=== PATIENT | male | born 1940 | race Caucasian/White ===

== ENCOUNTER → 2021-11-18 10:46 | Outpatient (CLI) | payer MEDICARE, MEDICAID, SELFPAY ==
--- NOTE | 2021-11-18 10:57 | FL_ITS ---
FINAL REPORT CLINICAL HISTORY: difficulty swallowing FINDINGS: MODIFIED BARIUM SWALLOW History: Dysphagia. FINDINGS: Fluoroscopy was provided for the speech pathologist to evaluate the swallowing mechanism. The patient was given several different consistencies of barium while the swallow was visualized fluoroscopically. The report of the speech pathologist should be consulted prior to making dietary decisions. FLUOROSCOPY TIME:4 minutes 1 second. 26 Cine runs were obtained. IMPRESSION: Modified barium swallow under fluoroscopic guidance. Please see the report of the speech pathologist for more detail. Films reviewed , interpreted and dictated by Dr. Baptiste. Transcribed by Aldair Baldwin PA-C. Reviewed, Interpreted and Dictated by Matt Baptiste III, MD Transcribed by SONJA Solano Authenticated by Matt Baptiste III, MD on 11/20/2021 08:39:42 AM [facility]
--- NOTE | 2021-11-18 13:38 | HMH.SLMBS2 ---
Speech & Language Evaluation Speech/Language Mod Barium Swallow Start: 11/18/21 11:39 Freq: once Status: Complete Protocol: Document 11/18/21 11:39 ARNOLD (Rec: 11/18/21 13:37 ARNOLD [id number]) General Information General Current Food Consistancy Mechanical Soft,Honey Liquids Dentition Edentulous Oxygen Status Room Air Ability to Follow Directions Fair Communication Ability Severe Impairment MBS Recommendations Diet Dietary Recommendations Pureed,[place] Liquids,Other Comment Via Provale or spouted cup Treatment/Strategies Strategy/Precaution Recommend Sitting Upright (90 deg),Small Bites and Sips,Alternate Liquids/Solids Mod Barium Swallow Impressions Summary and Impressions Oral Phase Impression Moderate Impairment Oral Phase Summary Significantly delayed mastication with all solids trialed. He was noted to swallow large pieces of unmasticated food at times. Tongue pumping noted intermittently throughout study . Pharyngeal Phase Impression Moderate Impairment Pharyngeal Phase Summary moderate pharyngeal impairment noted on the study. Delayed initiation of the pharyngeal swallow as well as prespill resulted in deep penetration of thin liquids during the swallow, which did not clear upon completion of the swallow . Pt was unable to follow directions to clear penetrated material from the laryngeal vestibule, and eventually aspirated residue. Aspiration present with thin liquids via open cup and Provale cup, however, aspirated material significantly decreased with Provale cup. Aspiration is silent and patient is unable to clear aspirated material. No aspiration or penetration noted with small, controlled drinks of nectar or honey thick liquids. Mild vallecular residue noted with all consistencies trialed. FILTER CHANGER
== END ==
PROVIDERS: PCP Emergency Medicine; Visit Provider Emergency Medicine
DX: R13.10 Dysphagia, unspecified (principal)
CPT/HCPCS: 70371; 92611

== ENCOUNTER 2021-12-30 18:21 | Emergency (ER) | payer MEDICARE, MEDICAID, SELFPAY ==
[2021-12-30 18:21] VITALS: BP 143/70; PULSE 60; RESP 20; TEMP 36.8; O2SAT 95; BMI 23.7
--- NOTE | 2021-12-30 18:21 | XR_ITS ---
PROCEDURE INFORMATION: Exam: XR Chest Exam date and time: 12/30/2021 7:24 PM Age: 81 years old Clinical indication: Cough; Additional info: Choking TECHNIQUE: Imaging protocol: Radiologic exam of the chest. Views: 1 view. COMPARISON: RF FL BARIUM SWALLOW MODIFIED 11/18/2021 11:07 AM FINDINGS: Lungs: Diffuse interstitial infiltrates which could reflect fluid overload or multifocal infection. Chronic interstitial disease is likely. Pleural spaces: Unremarkable. No pleural effusion. No pneumothorax. Heart/Mediastinum: Heart is upper limits normal in size. Vasculature: Calcification within thoracic aorta. Bones/joints: Acromioclavicular arthropathy. IMPRESSION: 1. Diffuse interstitial infiltrates which could reflect fluid overload or multifocal infection. Chronic interstitial disease is likely. 2. Borderline cardiomegaly.
--- NOTE | 2021-12-30 18:22 | HMH.EDGENADL ---
ED Disposition Clinical Impression: Choking episode Disposition: Home, Self-Care Condition on Discharge: Good Instructions: DI for Choking Episode Additional Instructions: You have been evaluated for choking episode. Please follow a pur?ed diet. Monitor your symptoms closely. Follow-up with your primary care doctor. Return to the emergency department at once for any new or worsening symptoms, fever, cough, difficulty breathing or any other concerns. Time of Disposition: 20:01 - Critical Care Critical Care Time: No Attestation: On , the high probability of a clinically significant, sudden or life threatening deterioration of the following system(s) required my full and direct attention, intervention and personal management. The time I documented below is in addition to time spent performing reported procedures but includes the following listed in this critical care notation. Medical Decision Making - Medical Records Medical records reviewed: Yes: I reviewed the patient's medical records. - Mario Inquiry Pt receiving controlled substance: No Vital Signs: 12/30/21 18:21 Temperature 98.2 F Temperature Source Oral Pulse Rate [Brachial] 60 Respiratory Rate 20 Blood Pressure [Left Arm] 143/70 H Blood Pressure Mean [Left Arm] 94 Blood Pressure Source [Left Arm] Automatic Cuff Blood Pressure Position [Left Arm] Sitting 02 Sat by Pulse Oximetry 95 Oxygen Delivery Method Room Air - Lab Data Lab Results 12/30/21 18:10: WBC 4.7 L, RBC 4.02 L, Hgb 11.5 L, Hct 36.5 L, MCV 90.8, MCH 28.7, MCHC 31.6 L, RDW 14.9, Plt Count 285, MPV 8.2, Neut % (Auto) 44.8, Lymph % (Auto) 37.6, Iron % (Auto) 6.9, Eos % (Auto) 9.0, Baso % (Auto) 1.8, Neut # (Auto) 2.1, Lymph # (Auto) 1.8, Iron # (Auto) 0.3, Eos # (Auto) 0.4, Baso # (Auto) 0.1 12/30/21 18:10: Sodium 135 L, Potassium 3.4 L, Chloride 99, Carbon Dioxide 26, Anion Gap 13.4, BUN 16, Creatinine 0.80, Estimated Creat Clear 68, Estimated GFR 93, Est GFR ( Amer) 113, Glucose 141 H, Calcium 9.3, Total Bilirubin < 0.1 L, AST 29, ALT 17, Alkaline Phosphatase 116, Troponin I < 0.01, Total Protein 7.0, Albumin 4.0, Globulin 3.0, Albumin/Globulin Ratio 1.3 12/30/21 18:22: VBG pH 7.34, VBG pCO2 43.2, VBG pO2 31.3, VBG HCO3 22.7 L, VBG Total CO2 24.0, VBG O2 Saturation 56.6, VBG Base Excess -3.1 L Result diagrams: 12/30/21 18:10 12/30/21 18:10 Orders (Tests/Meds): ORDERS Category Date Time Status Troponin I Q3H Lab 12/30/21 21:30 Ordered Troponin I Q3H Lab 12/31/21 00:30 Ordered ECG Request by /Carlos Stat Y 12/30/21 18:21 Stop Req Medical Decision Narrative: In summary this is an 81-[facility] male [facility] resident with severe dementia presenting to the emergency department after choking episode. Patient clinically stable on arrival. Vital signs within normal limits. Will obtain CBC, CMP, VBG, chest x-ray, EKG, troponin profile. EKG shows sinus rhythm without evidence of ischemia or arrhythmia. Initial laboratory results are reassuring. No anemia. No leukocytosis. Glucose and electrolytes within normal limits. Troponin undetectable Chest x-ray shows no signs of rib fractures, focal infiltrate or other acute abnormality. Reassessment, patient has been clinically stable while in the emergency department. No appreciable pain on palpation of the chest or abdomen. He seems to be at his baseline. Recommended close PCP follow-up. Given return precautions. Stable for discharge. General Adult HPI - General Stated complaint: Choking Time Seen by Provider: 12/30/21 18:22 Mode of Arrival: EMS Source of Information: EMS, Medical Record Limitations: Physical Limitations - History of Present Illness HPI narrative: 81-year-old male presenting to the emergency department for a choking episode. [facility]. Patient is on a pur?ed diet. He had tried to eat a biscuit just prior to arrival. Staff heard him choking. They tr
--- NOTE | 2021-12-30 18:31 | ECG_ITS ---
APPROVED REPORT Exam: Resting ECG HR:61 bpm ECG Measurements Heart Rate 61 AXES NC 197 P -11 QRSd 98 QRS 17 QT 433 T 62 QTc 436 Conclusion SINUS RHYTHM NONSPECIFIC ST & T-WAVE ABNORMALITY BORDERLINE ECG UNCONFIRMED REPORT Electronically signed by : David Breen MD 12/31/2021 16:57:00
[2021-12-30 18:32] LABS: Basophils # 0.1 K/mm3 (0-0.2); Basophils % 1.8 % (0.1-2.0); Eosinophils # 0.4 K/mm3 (0.0-0.4); Hematocrit 36.5 % (42.0-52.0); Hemoglobin 11.5 g/dL (14.1-18.0); Lymphocytes # 1.8 K/mm3 (0.7-4.5); Lymphocytes % 37.6 % (10-50); Mean Corpuscular HGB Conc 31.6 g/dL (31.8-35.4); Mean Corpuscular Hemoglobin 28.7 pg (27.0-31.2); Mean Corpuscular Volume 90.8 fl (80-94); Mean Platelet Volume 8.2 fl (7.4-10.4); Monocytes # 0.3 K/mm3 (0.1-1.0); Monocytes % 6.9 % (1.7-9.3); Neutrophils # 2.1 K/mm3 (1.8-7.8); Neutrophils % 44.8 % (37.0-80.0); Platelet Count 285 K/mm3 (142-424); Red Blood Count 4.02 M/mm3 (4.60-6.20); Red Cell Distribution Width 14.9 % (11.5-17.5); White Blood Count 4.7 K/mm3 (4.8-10.8)
[2021-12-30 18:44] LABS: Alanine Aminotransferase 17 U/L (12-78); Albumin/Globulin Ratio 1.3 (1.1-1.8); Alkaline Phosphatase 116 U/L (38-126); Anion Gap 13.4 mEq/L (5-15); Aspartate Amino Transferase 29 U/L (17-59); Blood Urea Nitrogen 16 mg/dl (9-20); Calcium 9.3 mg/dl (8.4-10.2); Carbon Dioxide 26 mmol/L (22.0-30.0); Chloride 99 mmol/L (98-107); Creatinine Clearance Estimated 68 mL/min (50-200); Estimated Glomerular Filt Rate 93 ml/min (>60); GFR (African American) 113 ML/MIN (>60); Glucose 141 mg/dl (74-100); Potassium 3.4 mmoL/L (3.5-5.1); Sodium 135 mmol/L (136-145)
[2021-12-30 18:49] LABS: Bilirubin,Total < 0.1 mg/dl (0.2-1.3)
[2021-12-30 18:56] LABS: Troponin I < 0.01 ng/ml (0.00-0.034)
[2021-12-30 19:01] VITALS: BP 132/78; RESP 17
--- NOTE | 2021-12-30 19:08 | PC.NURSE ---
REPORT GIVEN TO FERMENTATION OPERATOR NURSING STAFF
[2021-12-30 19:41] LABS: VBG Base Excess -3.1 mmol/L (-2.4-2.3); VBG HCO3 22.7 mmol/L (23-30); VBG Oxygen Saturation 56.6 % (50-70); VBG PCO2 43.2 mmol/L (35-51); VBG PH 7.34 mmol/L (7.31-7.41); VBG PO2 31.3 mmol/L (28-40)
[2021-12-30 20:01] VITALS: BP 128/54; PULSE 59; RESP 19; O2SAT 96
[2021-12-30 20:15] VITALS: BP 124/77; PULSE 77; RESP 18; TEMP 36.7; O2SAT 95
--- NOTE | 2021-12-30 20:23 | PC.NURSE ---
REPORT CALLED TO XAVIER CANELA LPN- IV REMOVED. PT MADE AWARE OF PLAN TO RETURN TO [facility]. [facility] NOTIFIED OF NEED FOR TRANSPORT.
== END 2021-12-30 20:59 | disposition home or self-care (01) ==
PROVIDERS: Emergency Provider Emergency Medicine
DX: T17.928A Food in respiratory tract, part unspecified causing other injury, initial encounter; Z79.82 Long term (current) use of aspirin; Z79.899 Other long term (current) drug therapy; Z79.84 Long term (current) use of oral hypoglycemic drugs; F03.90 Unspecified dementia, unspecified severity, without behavioral disturbance, psychotic disturbance, mood disturbance, and anxiety; E11.9 Type 2 diabetes mellitus without complications; I10 Essential (primary) hypertension; E78.5 Hyperlipidemia, unspecified; N40.0 Benign prostatic hyperplasia without lower urinary tract symptoms; F32.A Depression, unspecified
CPT/HCPCS: 71045; 80053; 82803; 84484; 85025; 93005; 99283

== ENCOUNTER 2022-05-05 17:33 | Emergency (ER) | payer MEDICARE, MEDICAID, SELFPAY ==
[2022-05-05 17:34] VITALS: BP 120/79; PULSE 74; RESP 18; TEMP 36.9; O2SAT 98; BMI 23.4
[2022-05-05 17:42] VITALS: BMI 23.4
--- NOTE | 2022-05-05 17:43 | CT_ITS ---
PROCEDURE INFORMATION: Exam: CT Cervical Spine Without Contrast Exam date and time: 05/05/2022 5:56 PM Age: 82 years old Clinical indication: Injury or trauma; Fall; Blunt trauma; Patient HX: long term patient fell. TECHNIQUE: Imaging protocol: Computed tomography of the cervical spine without contrast. Radiation optimization: All CT scans at this facility use at least one of these dose optimization techniques: automated exposure control; mA and/or kV adjustment per patient size (includes targeted exams where dose is matched to clinical indication); or iterative reconstruction. COMPARISON: CT HEAD/BRAIN WO CON 05/05/2022 5:52 PM FINDINGS: Limitations: Patient motion. Bones/joints: Vertebral body height and AP alignment is preserved. Ybbd-oo-rtsjqkro degenerative change about the dens. Mild prevertebral osteophytosis. No acute cervical spine fracture. No osseous destruction. No definite high-grade central canal stenosis within limitations of technique. Lungs: Right lung airspace disease is incompletely visualized. Pleural spaces: No visible pneumothorax. Vasculature: Vascular calcification. Soft tissues: Unremarkable. IMPRESSION: 1. No acute cervical spine fracture. 2. Right lung airspace disease is incompletely visualized.
--- NOTE | 2022-05-05 17:43 | XR_ITS ---
PROCEDURE INFORMATION: Exam: XR Pelvis Exam date and time: 05/05/2022 6:02 PM Age: 82 years old Clinical indication: Injury or trauma; Fall; Blunt trauma (contusions or hematomas); Bilateral; Hip TECHNIQUE: Imaging protocol: Radiologic exam of the pelvis. Views: 1 or 2 view. COMPARISON: No relevant prior studies available. FINDINGS: Bones/joints: Osteopenia. No fractures are identified. Hip joints are well aligned and joint spaces are well-maintained. SI joints and pubic symphysis demonstrate no diastasis. Soft tissues: No gross soft tissue abnormalities. IMPRESSION: No acute findings.
--- NOTE | 2022-05-05 17:43 | XR_ITS ---
PROCEDURE INFORMATION: Exam: XR Chest Exam date and time: 05/05/2022 6:02 PM Age: 82 years old Clinical indication: Injury or trauma; Fall; Blunt trauma (contusions or hematomas) TECHNIQUE: Imaging protocol: Radiologic exam of the chest. Views: 1 view. COMPARISON: CR XR CHEST PORTABLE 12/30/2021 7:24 PM FINDINGS: Lungs: Low lung volumes. Pulmonary vasculature grossly normal. Alveolar opacity in the right upper lobe anterior segment adjacent to the minor fissure could represent pneumonia, atelectasis, or pulmonary contusion. Minor alveolar opacities in the medial lung bases probably represents atelectasis from low lung volumes, patchy basilar infiltrates or edema less likely. Pleural spaces: No pleural effusion. No pneumothorax. Heart/Mediastinum: Heart size normal. Vasculature: Moderate aortic ectasia/tortuosity. Bones/joints: No acute osseous abnormalities are identified. Osteopenia. IMPRESSION: 1. Airspace disease in the right upper lobe anterior segment is somewhat consolidative in appearance and concerning for pneumonia. Pulmonary contusion might produce this appearance in the setting of trauma, although no local rib fractures are appreciated. There is no pneumothorax. 2. Low lung volumes with minor basilar stranding bilaterally probably representing atelectasis. Patchy basilar infiltrates or edema less likely.
--- NOTE | 2022-05-05 17:43 | CT_ITS ---
PROCEDURE INFORMATION: Exam: CT Head Without Contrast Exam date and time: 05/05/2022 5:52 PM Age: 82 years old Clinical indication: Injury or trauma; Fall; Blunt trauma (contusions or hematomas) TECHNIQUE: Imaging protocol: Computed tomography of the head without contrast. Radiation optimization: All CT scans at this facility use at least one of these dose optimization techniques: automated exposure control; mA and/or kV adjustment per patient size (includes targeted exams where dose is matched to clinical indication); or iterative reconstruction. COMPARISON: RF FL BARIUM SWALLOW MODIFIED 11/18/2021 11:07 AM FINDINGS: Limitations: Patient motion. Brain: Age-related volume loss. Mild decreased attenuation of the supratentorial white matter is likely secondary to chronic microvascular ischemia. No definite acute intracranial hemorrhage. No midline shift or intracranial mass effect. 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 Cerebral ventricles: Ventriculomegaly is commensurate for degree of volume loss. Paranasal sinuses: Visualized sinuses are unremarkable. No fluid levels. Mastoid air cells: Opacification of the vrpq-hxfkybd-cive-right mastoid air cells. Bones/joints: No gross acute calvarial fracture. Soft tissues: Unremarkable. IMPRESSION: 1. Motion limited examination. 2. No gross acute intracranial abnormality.
[2022-05-05 19:00] VITALS: BP 150/67; PULSE 45; O2SAT 95
--- NOTE | 2022-05-05 19:11 | HMH.EDGENADL ---
Discharge Plan Disposition Patient Disposition: Xfer SNF Condition: Good Prescriptions Prescriptions: No Action fluticasone propionate [Flonase Allergy Relief] 50 mcg/actuation spray,suspension 1 spray NS DAILY Rx Instructions: administer into each nostril aspirin [Adult Aspirin Regimen] 81 mg tablet,delayed release (DR/EC) 81 mg PO DAILY guaifenesin [Robafen] 100 mg/5 mL liquid 200 mg PO Q4H PRN omeprazole 40 mg capsule,delayed release(DR/EC) 40 mg PO DAILY Myrbetriq 50 mg tablet extended release 24 hr 50 mg PO DAILY metformin 500 mg tablet 500 mg PO BID meloxicam 7.5 mg tablet 7.5 mg PO DAILY loratadine [Claritin] 10 mg tablet 10 mg PO DAILY levothyroxine [Synthroid] 25 mcg tablet 25 mcg PO DAILY levetiracetam [Keppra] 100 mg/mL solution 500 mg PO BID gemfibrozil [Lopid] 600 mg tablet 600 mg PO BID Activity Restrictions/Add. Instructions Additional Instructions/Restrictions: You were evaluated in the emergency department today after a fall. Please follow-up with your primary care provider over the next 3 days. Return to the emergency department for any new or worsening symptoms. Continue taking antibiotics at home as prescribed for pneumonia. Clinical Impressions Clinical Impression: Fall from ground level Pneumonia Qualifiers: Laterality: right Lung location: upper lobe of lung Instructions Patient Instructions: Pneumonia-Adult, How to Prevent Falls Discharge ED Provider: Jennifer Calloway General Adult HPI General Chief complaint: Fall Stated complaint: fall Time Seen by Provider: 05/05/22 18:23 Mode of Arrival: EMS Source of Information: EMS Limitations: hx of MR per [facility] staff, pt non verbal Description of Symptoms (Recalled from ER Triage Doc. by RN): Per [facility] report pt fell while trying to get out of bed by himself. Staff states pt fell face down on the floor, hit the bar on the bedside table when he fell. Abrasion noted to R shoulder, L shoulder near axilla, bruise on L side of forehead and in L eyebrow area. Unwitnessed fall per [facility]. History of Present Illness HPI narrative: This patient is an 82-year-old male presenting to the emergency department for evaluation of a ground-level fall that he suffered while try to get out of bed by himself. He fell face down on the floor. Patient fall was reportedly unwitnessed. Unknown whether or not there was loss of consciousness. Patient is currently at his baseline and is nonverbal. Of note, he is currently being treated for pneumonia with Levaquin, which he was initiated on yesterday. No other concerns noted at this time per [facility]. Patient is unable to contribute to history given nonverbal. Related Data Home Medications Medication Instructions Recorded Confirmed aspirin 81 mg tablet,delayed 81 mg PO DAILY 12/08/21 04/27/22 release (Adult Aspirin Regimen) fluticasone propionate 50 1 spray intranasal DAILY 12/08/21 04/27/22 mcg/actuation nasal spray,suspension (Flonase Allergy Relief) gemfibrozil 600 mg tablet (Lopid) 600 mg PO BID 12/08/21 04/27/22 guaifenesin 100 mg/5 mL oral 200 mg PO Q4H PRN 12/08/21 04/27/22 liquid (Robafen) levetiracetam 100 mg/mL oral 500 mg PO BID 12/08/21 04/27/22 solution (Keppra) levothyroxine 25 mcg tablet 25 mcg PO DAILY 12/08/21 04/27/22 (Synthroid) loratadine 10 mg tablet (Claritin) 10 mg PO DAILY 12/08/21 04/27/22 meloxicam 7.5 mg tablet 7.5 mg PO DAILY 12/08/21 04/27/22 metformin 500 mg tablet 500 mg PO BID 12/08/21 04/27/22 mirabegron 50 mg tablet,extended 50 mg PO DAILY 12/08/21 04/27/22 release 24 hr (Myrbetriq) omeprazole 40 mg capsule,delayed 40 mg PO DAILY 12/08/21 04/27/22 release Allergies Allergy/AdvReac Type Severity Reaction Status Date / Time atenolol Allergy Intermediate Verified 04/27/22 21:19 meperidine [From Demerol] Allergy Intermediate Verified
--- NOTE | 2022-05-05 19:18 | PC.NURSE ---
shift change report given to carol sabillon and elijahrn
[2022-05-05 19:47] VITALS: BP 136/71; PULSE 74; RESP 18; TEMP 36.9; O2SAT 98
[2022-05-05 20:01] VITALS: BP 157/73; PULSE 72; O2SAT 95
--- NOTE | 2022-05-05 20:25 | PC.NURSE ---
[facility] aware of pt need for transport. They advised they would be be here as soon as possible.
== END 2022-05-05 21:11 ==
PROVIDERS: Emergency Provider Emergency Medicine
DX: M25.512 Pain in left shoulder (principal); M25.511 Pain in right shoulder; S00.81XA Abrasion of other part of head, initial encounter; S00.212A Abrasion of left eyelid and periocular area, initial encounter; F32.A Depression, unspecified; J18.1 Lobar pneumonia, unspecified organism; Z79.1 Long term (current) use of non-steroidal anti-inflammatories (NSAID); Z79.51 Long term (current) use of inhaled steroids; Z79.82 Long term (current) use of aspirin; Z79.84 Long term (current) use of oral hypoglycemic drugs; Z79.899 Other long term (current) drug therapy; Z88.8 Allergy status to other drugs, medicaments and biological substances; W17.89XA Other fall from one level to another, initial encounter; Y93.9 Activity, unspecified; Y92.003 Bedroom of unspecified non-institutional (private) residence as the place of occurrence of the external cause; Y99.8 Other external cause status
CPT/HCPCS: 70450; 71045; 72125; 72170; 99285

== ENCOUNTER 2022-10-05 13:47 | Emergency (ER) | payer MEDICARE, MEDICAID, SELFPAY ==
[2022-10-05] VITALS (13 sets, daily range): BP systolic 112–134; BP diastolic 49–80; PULSE 71–83; RESP 18–28; TEMP 36.4–36.5; O2SAT 92–99; BMI 23.7
[2022-10-05 14:05] LABS: POC Glucose,Bedside 123 (70-110)
--- NOTE | 2022-10-05 14:05 | ECG_ITS ---
APPROVED REPORT Exam: Resting ECG HR:78 bpm ECG Measurements Heart Rate 78 AXES AR 230 P 71 QRSd 95 QRS 34 QT 394 T 88 QTc 427 Conclusion SINUS RHYTHM WITH FIRST DEGREE AV BLOCK WITH FREQUENT VENTRICULAR PREMATURE COMPLEXES IN A BIGEMINAL PATTERN NONSPECIFIC ST & T-WAVE ABNORMALITY ABNORMAL ECG UNCONFIRMED REPORT Electronically signed by : David Breen MD 10/05/2022 21:13:41
--- NOTE | 2022-10-05 14:16 | XR_ITS ---
FINAL REPORT CLINICAL HISTORY: cough COMPARISON: May 2022 FINDINGS: The heart size is normal. The mediastinum is within normal limits. The lungs are underinflated. The previously seen right upper lobe airspace infiltrate has resolved. There are mild chronic changes in the lung bases. There is no pleural effusion. There is no pneumothorax. The bony thorax is intact. IMPRESSION: No acute cardiopulmonary process. Reviewed, Interpreted and Dictated by Rosalio Bustamante MD Transcribed by Semaj Noriega Authenticated and [facility]
--- NOTE | 2022-10-05 14:18 | PC.NURSE ---
2 sets of blood cultures, lactic, and UA sent to lab.
--- NOTE | 2022-10-05 14:28 | PC.NURSE ---
labs and urine sent to lab
[2022-10-05 14:43] LABS: Microscopic, Urine URINE MICROSCOPIC (MICROSCOPIC)
[2022-10-05 14:46] LABS: Appearance,Urine CLOUDY (Clear); Bilirubin,Urine Negative (Negative); Blood, Urine 2+ (Negative); Color,Urine YELLOW (Yellow); Glucose,Urine (UA) Negative (Negative); Ketones,Urine Negative (Negative); Leukocyte Esterase,Urine 2+ (Negative); Nitrate,Urine POSITIVE (Negative); Protein,Urine 1+ (Negative)
[2022-10-05 14:46] LABS: Chloride 103 mmol/L (98-107)
[2022-10-05 14:47] LABS: Potassium 3.2 mmoL/L (3.5-5.1); Sodium 140 mmol/L (136-145)
[2022-10-05 14:49] LABS: Alanine Aminotransferase 11 U/L (12-78); Aspartate Amino Transferase 20 U/L (17-59); Basophils # 0.1 K/mm3 (0-0.2); Basophils % 0.5 % (0.1-2.0); Blood Urea Nitrogen 15 mg/dl (9-20); Creatinine Clearance Estimated 63 mL/min (50-200); Eosinophils # 0.2 K/mm3 (0.0-0.4); Eosinophils % 1.7 % (0.1-12.0); Estimated Glomerular Filt Rate 93 ml/min (>60); GFR (African American) 112 ML/MIN (>60); Hematocrit 36.4 % (42.0-52.0); Lymphocytes # 1.5 K/mm3 (0.7-4.5); Mean Corpuscular Hemoglobin 28.9 pg (27.0-31.2); Mean Corpuscular Volume 87.6 fl (80-94); Mean Platelet Volume 7.9 fl (7.4-10.4); Monocytes # 0.4 K/mm3 (0.1-1.0); Monocytes % 4.1 % (1.7-9.3); Neutrophils # 7.2 K/mm3 (1.8-7.8); Neutrophils % 77.7 % (37.0-80.0); Platelet Count 350 K/mm3 (142-424); Red Blood Count 4.16 M/mm3 (4.60-6.20); Red Cell Distribution Width 14.3 % (11.5-17.5); White Blood Count 9.3 K/mm3 (4.8-10.8)
[2022-10-05 14:50] LABS: Albumin Level 3.9 g/dl (3.5-5.0); Albumin/Globulin Ratio 1.2 (1.1-1.8); Alkaline Phosphatase 111 U/L (38-126); Anion Gap 14.2 mEq/L (5-15); Bilirubin,Total 0.7 mg/dl (0.2-1.3); Calcium 9.2 mg/dl (8.4-10.2); Carbon Dioxide 26 mmol/L (22.0-30.0); Globulin 3.2 g/dL (1.3-3.2); Glucose 151 mg/dl (74-100); Lactic Acid 1.5 mmol/L (0.7-2.1); Total Protein,Serum 7.1 g/dl (6.3-8.2)
[2022-10-05 14:57] LABS: WBC,Urine 50-100 #/hpf (0-3)
[2022-10-05 14:58] LABS: Bacteria,Urine 4+ /lpf
--- NOTE | 2022-10-05 15:09 | HMH.EDGENADL ---
Discharge Plan Disposition Patient Disposition: Xfer Short-Term Hosp Condition: Fair Prescriptions Prescriptions: New cefdinir 300 mg capsule 300 mg PO BID 10 Days Qty: 20 0RF No Action fluticasone propionate [Flonase Allergy Relief] 50 mcg/actuation spray,suspension 1 spray NS DAILY Rx Instructions: administer into each nostril aspirin [Adult Aspirin Regimen] 81 mg tablet,delayed release (DR/EC) 81 mg PO DAILY guaifenesin [Robafen] 100 mg/5 mL liquid 200 mg PO Q4H PRN omeprazole 40 mg capsule,delayed release(DR/EC) 40 mg PO DAILY Myrbetriq 50 mg tablet extended release 24 hr 50 mg PO DAILY metformin 500 mg tablet 500 mg PO BID meloxicam 7.5 mg tablet 7.5 mg PO DAILY loratadine [Claritin] 10 mg tablet 10 mg PO DAILY levothyroxine [Synthroid] 25 mcg tablet 25 mcg PO DAILY levetiracetam [Keppra] 100 mg/mL solution 500 mg PO BID gemfibrozil [Lopid] 600 mg tablet 600 mg PO BID donepezil 10 mg Tablet 10 mg PO DAILY calcium carbonate-vitamin D3 [Calcium 600 with Vitamin D3] 600 mg-5 mcg (200 unit) Tablet 1 tab PO BID folic acid 1 mg Tablet 1 mg PO DAILY acetaminophen 500 mg Tablet,Chewable 500 mg PO BID Referrals Follow up/Referrals: Provider,Referral, MD [Primary Care Provider] - See instructions Clinical Impressions Clinical Impression: Acute UTI, Dementia Instructions Patient Instructions: DI for Urinary Tract Infection (UTI) Print Language Print Language: Burmese Discharge ED Provider: Tonio Fuentes General Adult HPI General Chief complaint: Weakness Stated complaint: Weakness Time Seen by Provider: 10/05/22 16:17 Mode of Arrival: EMS Source of Information: EMS Limitations: Altered Mental Status Description of Symptoms (Recalled from ER Triage Doc. by RN): unable to obtain hx from patient. per EMS report pt presents with increased confusion and per report decreased appetite. History of Present Illness HPI narrative: Patient presents to the emergency department as a transfer from a [facility] for evaluation of increased confusion and worsening altered mental status. The patient has a history of schizophrenia and dementia. He has a suprapubic catheter in place. Patient is unable to provide any medical history at this time. Related Data Home Medications Medication Instructions Recorded Confirmed aspirin 81 mg tablet,delayed 81 mg PO DAILY 12/08/21 07/13/22 release (Adult Aspirin Regimen) fluticasone propionate 50 1 spray intranasal DAILY 12/08/21 07/13/22 mcg/actuation nasal spray,suspension (Flonase Allergy Relief) gemfibrozil 600 mg tablet (Lopid) 600 mg PO BID 12/08/21 07/13/22 guaifenesin 100 mg/5 mL oral 200 mg PO Q4H PRN 12/08/21 07/13/22 liquid (Robafen) levetiracetam 100 mg/mL oral 500 mg PO BID 12/08/21 07/13/22 solution (Keppra) levothyroxine 25 mcg tablet 25 mcg PO DAILY 12/08/21 07/13/22 (Synthroid) loratadine 10 mg tablet (Claritin) 10 mg PO DAILY 12/08/21 07/13/22 meloxicam 7.5 mg tablet 7.5 mg PO DAILY 12/08/21 07/13/22 metformin 500 mg tablet 500 mg PO BID 12/08/21 07/13/22 mirabegron 50 mg tablet,extended 50 mg PO DAILY 12/08/21 07/13/22 release 24 hr (Myrbetriq) omeprazole 40 mg capsule,delayed 40 mg PO DAILY 12/08/21 07/13/22 release acetaminophen 500 mg chewable 500 mg PO BID unknown 10/05/22 10/05/22 tablet calcium carbonate 600 mg-vitamin 1 tab PO BID unknown 10/05/22 10/05/22 D3 5 mcg (200 unit) tablet donepezil 10 mg tablet 10 mg PO DAILY unknown 10/05/22 10/05/22 folic acid 1 mg tablet 1 mg PO DAILY unknown 10/05/22 10/05/22 Previous Rx's Medication Instructions Recorded cefdinir 300 mg capsule 300 mg PO BID 10 days #20 caps 10/05/22 Allergies Allergy/AdvReac Type Severity Reaction Status Date / Time atenolol Allergy Intermediate Verified 07/13/22 17:02 meperidine [From Demerol] Allergy Intermediate Verjaja
[2022-10-05 15:16] LABS: Troponin I < 0.01 ng/ml (0.00-0.034)
--- NOTE | 2022-10-05 15:41 | PC.NURSE ---
urine sent to lab from [facility]/
[2022-10-05 15:47] LABS: Microscopic, Urine URINE MICROSCOPIC (MICROSCOPIC)
[2022-10-05 15:50] LABS: Appearance,Urine CLOUDY (Clear); Bilirubin,Urine Negative (Negative); Blood, Urine 3+ (Negative); Color,Urine YELLOW (Yellow); Glucose,Urine (UA) Negative (Negative); Ketones,Urine TRACE (Negative); Leukocyte Esterase,Urine 2+ (Negative); Nitrate,Urine POSITIVE (Negative); PH,Urine 5.5 (5.0-8.5); Protein,Urine 2+ (Negative); Specific Gravity, Urine 1.025 (1.005-1.030)
[2022-10-05 16:24] LABS: Bacteria,Urine 3+ /lpf; WBC,Urine 20-50 #/hpf (0-3)
--- NOTE | 2022-10-05 17:53 | PC.NURSE ---
[facility]
--- NOTE | 2022-10-05 18:16 | PC.NURSE ---
called report to POLINA Garcia at [place]
== END 2022-10-05 19:14 | disposition short-term general hospital (02) ==
PROVIDERS: Emergency Provider Emergency Medicine
DX: R41.82 Altered mental status, unspecified (principal); N39.0 Urinary tract infection, site not specified
CPT/HCPCS: 71045; 80053; 81001; 82962; 83605; 84484; 85025; 87040; 87086; 87088; 87186; 93005; 96365; 99285; J0696

== ENCOUNTER 2023-05-12 09:29 | Inpatient (IN) | payer MEDICARE, MEDICAID, SELFPAY ==
[2023-05-12] VITALS (13 sets, daily range): BP systolic 112–138; BP diastolic 49–85; PULSE 83–113; RESP 20–28; TEMP 36.6–38.2; O2SAT 91–99; BMI 18.6; BMI 17.6
--- NOTE | 2023-05-12 09:19 | ECG_ITS ---
APPROVED REPORT Exam: Resting ECG HR:119 bpm ECG Measurements Heart Rate 119 AXES SD 197 P 78 QRSd 77 QRS 11 QT 279 T 235 QTc [address] DEVIATION AND MODERATE T-WAVE ABNORMALITY, CONSIDER ANTEROLATERAL ISCHEMIA [-0.1+ mV T-WAVE IN V3-V6] ABNORMAL ECG UNCONFIRMED REPORT Electronically signed by : David Breen MD 05/12/2023 17:30:11
--- NOTE | 2023-05-12 09:24 | XR_ITS ---
FINAL REPORT CLINICAL HISTORY: hypoxia, cough COMPARISON: 10/05/2022 FINDINGS: A portable view of the chest was obtained. Cardiac and mediastinal silhouettes are within normal limits. There are new, peripherally predominant, patchy opacities in the right lung concerning for pneumonia. There is right basilar atelectasis or pneumonia. There is no pleural effusion or pneumothorax. IMPRESSION: Peripheral patchy opacities in the right lung concerning for pneumonia. Right basilar atelectasis or pneumonia. Reviewed, Interpreted and Dictated by Lydia Scanlon MD Transcribed by Alix Bishop Authenticated and [facility]
--- NOTE | 2023-05-12 09:28 | HMH.EDGENADL ---
Discharge Plan Disposition Patient Disposition: Admitted Chief Complaint: Shortness of Breath/Dyspnea Prescriptions Prescriptions: No Action aspirin [Adult Aspirin Regimen] 81 mg tablet,delayed release (DR/EC) 81 mg PO DAILY guaifenesin [Robafen] 100 mg/5 mL liquid 200 mg PO Q4H PRN (Reason: .) omeprazole 40 mg capsule,delayed release(DR/EC) 40 mg PO DAILY metformin 500 mg tablet 500 mg PO BID loratadine [Claritin] 10 mg tablet 10 mg PO DAILY levothyroxine [Synthroid] 25 mcg tablet 25 mcg PO DAILY levetiracetam [Keppra] 100 mg/mL solution 500 mg PO BID gemfibrozil [Lopid] 600 mg tablet 600 mg PO BID donepezil 10 mg Tablet 10 mg PO DAILY calcium carbonate-vitamin D3 [Calcium 600 with Vitamin D3] 600 mg-5 mcg (200 unit) Tablet 1 tab PO BID folic acid 1 mg Tablet 1 mg PO DAILY acetaminophen 500 mg Tablet,Chewable 500 mg PO BID ondansetron HCl 4 mg tablet 4 mg PO NEEDED PRN (Reason: Nausea) tolterodine 2 mg tablet 2 mg PO BID sertraline 50 mg tablet 50 mg PO DAILY risperidone 1 mg tablet 1 mg PO BID Referrals Follow up/Referrals: Sukhi Linton MD [Primary Care Provider] - See instructions Clinical Impressions Clinical Impression: Sepsis, Pneumonia, Acute hypoxic respiratory failure, Acute hypernatremia Discharge ED Provider: Josiah Hobbs General Adult HPI General Chief complaint: Shortness of Breath/Dyspnea Stated complaint: Weakness, SOA, hypoxia, recent PNA Time Seen by Provider: 05/12/23 09:15 History of Present Illness HPI narrative: Patient is a 83-year-old male with past medical history of dementia, nonverbal, follows commands at baseline in a wheelchair who presents emergency department for suspected pneumonia. Patient was diagnosed with pneumonia over the last week and was started on a course of azithromycin for which he usually responds. Due to persistent symptoms and new onset hypoxia over the last 24 hours he presents here for continued evaluation. No other history is able to be obtained at this time given patient is nonverbal. In route patient was initiated 500 cc crystalloid bolus and was given a DuoNeb for which symptoms have been refractory. Per review of [facility] chart patient has been on azithromycin since the sixth. Related Data Home Medications Medication Instructions Recorded Confirmed aspirin 81 mg tablet,delayed 81 mg PO DAILY 12/08/21 05/12/23 release (Adult Aspirin Regimen) gemfibrozil 600 mg tablet (Lopid) 600 mg PO BID 12/08/21 05/12/23 guaifenesin 100 mg/5 mL oral 200 mg PO Q4H PRN . 12/08/21 05/12/23 liquid (Robafen) levetiracetam 100 mg/mL oral 500 mg PO BID 12/08/21 05/12/23 solution (Keppra) levothyroxine 25 mcg tablet 25 mcg PO DAILY 12/08/21 05/12/23 (Synthroid) loratadine 10 mg tablet (Claritin) 10 mg PO DAILY 12/08/21 05/12/23 metformin 500 mg tablet 500 mg PO BID 12/08/21 05/12/23 omeprazole 40 mg capsule,delayed 40 mg PO DAILY 12/08/21 05/12/23 release acetaminophen 500 mg chewable 500 mg PO BID unknown 10/05/22 05/12/23 tablet calcium carbonate 600 mg-vitamin 1 tab PO BID unknown 10/05/22 05/12/23 D3 5 mcg (200 unit) tablet donepezil 10 mg tablet 10 mg PO DAILY unknown 10/05/22 05/12/23 folic acid 1 mg tablet 1 mg PO DAILY unknown 10/05/22 05/12/23 ondansetron HCl 4 mg tablet 4 mg PO NEEDED PRN Nausea 05/12/23 05/12/23 risperidone 1 mg tablet 1 mg PO BID 05/12/23 05/12/23 sertraline 50 mg tablet 50 mg PO DAILY 05/12/23 05/12/23 tolterodine 2 mg tablet 2 mg PO BID 05/12/23 05/12/23 Allergies Allergy/AdvReac Type Severity Reaction Status Date / Time atenolol Allergy Intermediate Verified 05/12/23 09:41 meperidine [From Demerol] Allergy Intermediate Verified 05/12/23 09:41 ziprasidone [From Geodon] Allergy Intermediate Verified 05/12/23 09:[address] [facility] Disclaimer: The information contained in this section may kasper
--- NOTE | 2023-05-12 09:29 | PC.NURSE ---
Fall risk and allergy bracelet bands placed on patients left wrist.
[2023-05-12 09:39] LABS: Basophils % 0.3 % (0.1-2.0); Eosinophils # 0.1 K/mm3 (0.0-0.4); Eosinophils % 0.4 % (0.1-12.0); Hematocrit 34.7 % (42.0-52.0); Hemoglobin 11.9 g/dL (14.1-18.0); Lymphocytes % 19.2 % (10-50); Mean Corpuscular HGB Conc 34.2 g/dL (31.8-35.4); Mean Corpuscular Volume 87.5 fl (80-94); Mean Platelet Volume 7.9 fl (7.4-10.4); Monocytes # 0.4 K/mm3 (0.1-1.0); Neutrophils # 7.9 K/mm3 (1.8-7.8); Neutrophils % 76.1 % (37.0-80.0); Platelet Count 231 K/mm3 (142-424); Red Blood Count 3.96 M/mm3 (4.60-6.20); Red Cell Distribution Width 14.6 % (11.5-17.5); White Blood Count 10.4 K/mm3 (4.8-10.8)
[2023-05-12 09:47] LABS: Alanine Aminotransferase 18 U/L (12-78); Albumin Level 3.8 g/dl (3.5-5.0); Albumin/Globulin Ratio 1.1 (1.1-1.8); Alkaline Phosphatase 95 U/L (38-126); Aspartate Amino Transferase 20 U/L (17-59); Bilirubin,Total 0.6 mg/dl (0.2-1.3); Blood Urea Nitrogen 26 mg/dl (9-20); Calcium 9.8 mg/dl (8.4-10.2); Carbon Dioxide 25 mmol/L (22.0-30.0); Chloride 112 mmol/L (98-107); Creatinine Clearance Estimated 48 mL/min (50-200); Estimated Glomerular Filt Rate 64 ml/min (>60); GFR (African American) 78 ML/MIN (>60); Globulin 3.4 g/dL (1.3-3.2); Glucose 167 mg/dl (74-100); Total Protein,Serum 7.2 g/dl (6.3-8.2)
[2023-05-12 09:48] LABS: VBG Base Excess 1.3 mmol/L (-2.4-2.3); VBG HCO3 25.4 mmol/L (23-30); VBG Oxygen Saturation 99.5 % (50-70); VBG PCO2 37.8 mmol/L (35-51); VBG PH 7.45 mmol/L (7.31-7.41); VBG PO2 261.3 mmol/L (28-40); VBG Total CO2 26.5 mmol/L (23-27)
--- NOTE | 2023-05-12 09:53 | PC.NURSE ---
Pt's [employer] of [employer], Abby Savage, called for a pt update. Update with care given. She provided her cell [phone], office [phone], after hours contact # [phone].
[2023-05-12 09:57] LABS: INR 1.12 (0.9-1.1)
[2023-05-12 09:59] LABS: Lactic Acid 1.1 mmol/L (0.7-2.1)
[2023-05-12 10:02] LABS: Troponin I < 0.01 ng/ml (0.00-0.034)
[2023-05-12 10:11] LABS: Potassium 3.3 mmoL/L (3.5-5.1); Sodium 149 mmol/L (136-145)
--- NOTE | 2023-05-12 10:38 | PC.NURSE ---
ER MD Hobbs speaking with hospitalist Dr. Peralta
--- NOTE | 2023-05-12 10:41 | PC.NURSE ---
notified care management of admission
--- NOTE | 2023-05-12 10:48 | EXP.HP ---
History of Present Illness *Admission Date: 05/12/23 *Reason for visit:: Shortness of breath, fatigue *History of present illness: Pleasantly demented 83-year-old male who presents from his senior living due to increased work of breathing and concern for possible pneumonia. Patient was diagnosed with pneumonia a week ago and started on azithromycin but did not show any improvement. His symptoms have persisted with new onset hypoxia over the past 24 hours. Unable to obtain any history from patient. History obtained from chart and review of ER documentation. Requiring 4 L of oxygen initially. Chest imaging concerning for pneumonia. UA obtained concerning for UTI. Given weakness, new oxygen requirement, ER consulted medicine for admission. Patient is alert and awake but does not respond to verbal stimuli. [facility] Disclaimer: The information contained in this section may have been updated after the patient was seen, as this information can be updated by other users. Medical History Allergic rhinitis Alzheimer's dementia Depression Diabetes mellitus Dysphagia Epilepsy GERD without esophagitis Hyperlipidemia Inguinal hernia Osteoarthritis Rheumatoid arthritis Vitamin B deficiency Vitamin D deficiency Family History No significant family history Mental illness in member of household Social History Smoking Status: Never smoker alcohol intake: former current occupational status: disabled Travel in the last 8 weeks: None Review of Systems Review of Systems Review of systems:: unable to obtain Meds Home Medications and Allergies Home Medications Medication Instructions Recorded Confirmed Type gemfibrozil 600 mg tablet (Lopid) 600 mg PO BID Cholesterol 12/08/21 05/12/23 History guaifenesin 100 mg/5 mL oral 200 mg PO DAILY Cough 12/08/21 05/12/23 History liquid (Robafen) levothyroxine 25 mcg tablet 25 mcg PO DAILY thyroid 12/08/21 05/12/23 History (Synthroid) loratadine 10 mg tablet (Claritin) 10 mg PO DAILY allergies 12/08/21 05/12/23 History metformin 500 mg tablet 500 mg PO BID Diabetes 12/08/21 05/12/23 History omeprazole 40 mg capsule,delayed 40 mg PO DAILY Acid Reflux 12/08/21 05/12/23 History release calcium carbonate 600 mg-vitamin 1 tab PO BID Supplement 10/05/22 05/12/23 History D3 5 mcg (200 unit) tablet donepezil 10 mg tablet 10 mg PO HS memory 10/05/22 05/12/23 History folic acid 1 mg tablet 1 mg PO DAILY Supplement 10/05/22 05/12/23 History acetaminophen 500 mg tablet 500 mg PO BID Pain 05/12/23 05/12/23 History acetaminophen 500 mg tablet 500 mg PO Q4HP PRN Pain 05/12/23 05/12/23 History aspirin 81 mg chewable tablet 81 mg PO DAILY heart health 05/12/23 05/12/23 History azithromycin 250 mg tablet 250 mg PO DAILY Infection 05/12/23 05/12/23 History benzonatate 100 mg capsule 100 mg PO Q8HP PRN Cough 05/12/23 05/12/23 History cyanocobalamin (vitamin B-12) 1,000 mcg PO DAILY Supplement 05/12/23 05/12/23 History 1,000 mcg tablet lactulose 10 gram/15 mL oral 30 ml PO DAILY PRN Constipation 05/12/23 05/12/23 History solution levetiracetam 750 mg tablet 750 mg PO BID seizures 05/12/23 05/12/23 History ondansetron HCl 4 mg tablet 4 mg PO NEEDED PRN Nausea 05/12/23 05/12/23 History risperidone 1 mg tablet 1 mg PO BID mood 05/12/23 05/12/23 History sertraline 50 mg tablet 50 mg PO DAILY mood 05/12/23 05/12/23 History tolterodine 2 mg tablet 2 mg PO BID bladder 05/12/23 05/12/23 History New Prescriptions to Start Prescriptions: Allergies Allergy/AdvReac Type Severity Reaction Status Date / Time atenolol Allergy Intermediate Verified 05/12/23 09:41 meperidine [From Demerol] Allergy Intermediate Verified 05/12/23 09:41 ziprasidone [From Geodon] Allergy Intermediate Verified 05/12/23 09:41 Exam Data for Last 24 hours Vital
[2023-05-12 10:50] LABS: Microscopic, Urine URINE MICROSCOPIC (MICROSCOPIC)
[2023-05-12 10:52] LABS: Blood, Urine TRACE-I (Negative); Glucose,Urine (UA) Negative (Negative); Ketones,Urine Negative (Negative); Leukocyte Esterase,Urine 2+ (Negative); Nitrate,Urine POSITIVE (Negative); Protein,Urine 2+ (Negative); Specific Gravity, Urine >= 1.030 (1.005-1.030)
[2023-05-12 10:54] LABS: Coronavirus 19, PCR Not Detected (NotDetected); Influenza A, PCR Not Detected (NotDetected); Influenza B, PCR Not Detected (NotDetected)
[2023-05-12 11:01] LABS: Bilirubin,Urine 1+ (Negative)
[2023-05-12 11:02] LABS: Appearance,Urine Cloudy (Clear); Color,Urine Dark Yellow (Yellow)
[2023-05-12 11:17] LABS: Bacteria,Urine 1+ /lpf
--- NOTE | 2023-05-12 11:33 | PC.NURSE ---
Registration has delivered admission packet
--- NOTE | 2023-05-12 11:38 | PC.NURSE ---
Called report to Alejandra Whyte RN
--- NOTE | 2023-05-12 12:19 | PC.NURSE ---
patient to second floor via stretcher with SRNA.
[2023-05-12 13:15] LABS: POC Glucose,Bedside 255 (70-110)
--- NOTE | 2023-05-12 13:19 | P.CONPHA_ITS ---
Pharmacy Intervention Comments: Med reconciliation completed using MAR from custodial
--- NOTE | 2023-05-12 13:19 | HMH.PHAINT1 ---
Pharmacy Intervention Comments: Med reconciliation completed using MAR from [facility]
--- NOTE | 2023-05-12 13:30 | SW/DCPLANNER ---
This patient currently resides at [facility] level of care. I will continue to follow up w/ Crystal until patient is medically stable for discharge. Discharge date is unknown at this time.
[2023-05-12 13:37] LABS: Thyroid Stimulating Hormone 1.02 uIU/mL (0.465-4.68)
[2023-05-12 14:02] LABS: Troponin I < 0.01 ng/ml (0.00-0.034)
--- NOTE | 2023-05-12 15:19 | DIET.NUTRFU ---
Spoke to nursing at [facility], until last couple days patient was feeding self with good intake. She said he is very impulsive, they use plastic spoons for pureed foods and sippy cups for liquids to control amount he gets at a time. Based on his alertness currently staff will need to assist with meals. He likes fortified oatmeal and magic cups- will order oatmeal and use NTL ice cream for extra calories and protein. [facility] nursing said he loves coffee with cream and sugar. For wt hx, she had a wt of 145.6# in Apr and our CBW is 136.4 he has a low BMI of 17. Based on above information along with hx of dementia his MNA score is 4-5 which triggers him for severe PCM, will notify provider
--- NOTE | 2023-05-12 16:08 | PC.NURSE ---
Report given to Elizabeth Stephenson RN
[2023-05-12 16:27] LABS: Troponin I < 0.01 ng/ml (0.00-0.034)
[2023-05-12 16:42] LABS: POC Glucose,Bedside 200 (70-110)
[2023-05-12 20:33] LABS: POC Glucose,Bedside 267 (70-110)
[2023-05-13] VITALS (9 sets, daily range): BP systolic 101–121; BP diastolic 42–66; PULSE 44–98; RESP 17–24; TEMP 36.1–37.7; O2SAT 94–99; BMI 18.1
--- NOTE | 2023-05-13 07:00 | EXP.ACUTE.PN ---
Subjective *Date: 05/13/23 *Time: 12:47 Interval history: Patient sitting up in bed eating with assistance this morning on initial eval. In bedside chair on repeat eval. More alert than yesterday. Will look at examiner, does not respond verbally to questions or stimuli. Requiring assistance to feed. No nausea or vomiting. No fever. On 4 L nasal cannula oxygen this morning. Medical Exam Vital signs and Labs for Last 24 Hours: Vital Signs Temp Pulse Pulse Resp BP BP Pulse Ox 05/13/23 05:50 96 H 05/13/23 05:50 98 H 05/13/23 05:50 95 05/13/23 04:00 99.8 F H 87 18 101/49 L 96 05/13/23 05:00 05/13/23 03:00 05/13/23 01:00 05/13/23 00:30 86 05/13/23 00:30 87 05/13/23 00:00 98.8 F 87 22 108/47 L 95 05/12/23 23:00 05/12/23 21:00 05/13/23 06:44 05/12/23 20:00 98.5 F 83 24 115/53 L 91 L 05/12/23 18:00 05/12/23 17:57 96 H 05/12/23 17:57 96 H 05/12/23 17:57 95 05/12/23 17:00 05/12/23 16:00 100.7 F H 87 113/61 98 05/12/23 15:00 05/12/23 12:30 05/12/23 13:00 05/12/23 12:50 97.8 F 88 20 138/75 94 L 05/12/23 12:08 90 05/12/23 12:08 89 05/12/23 12:08 95 05/12/23 11:30 84 22 133/68 95 05/12/23 11:48 98.9 F 84 22 133/68 05/12/23 11:00 92 H 112/71 98 05/12/23 10:30 88 118/49 L 99 05/12/23 10:00 96 H 24 125/54 L 97 05/12/23 09:30 107 H 28 H 132/75 92 L 05/12/23 09:24 113 H 28 H 138/85 91 L 05/12/23 09:37 100.7 F H 106 H 27 H 132/75 93 L O2 Del Method O2 Flow Rate 05/13/23 05:50 05/13/23 05:50 05/13/23 05:50 Nasal Cannula 4 05/13/23 04:00 Nasal Cannula 4 05/13/23 05:00 Nasal Cannula 05/13/23 03:00 Nasal Cannula 4 05/13/23 01:00 Nasal Cannula 4 05/13/23 00:30 05/13/23 00:30 05/13/23 00:00 Nasal Cannula 4 05/12/23 23:00 Nasal Cannula 4 05/12/23 21:00 Nasal Cannula 4 05/13/23 06:44 Nasal Cannula 4 05/12/23 20:00 Nasal Cannula 4 05/12/23 18:00 Nasal Cannula 4 05/12/23 17:57 05/12/23 17:57 05/12/23 17:57 Nasal Cannula 3 05/12/23 17:00 Nasal Cannula 05/12/23 16:00 Nasal Cannula 3 05/12/23 15:00 Nasal Cannula 4 05/12/23 12:30 Nasal Cannula 4 05/12/23 13:00 Nasal Cannula 4 05/12/23 12:50 Nasal Cannula 4 05/12/23 12:08 05/12/23 12:08 05/12/23 12:08 Nasal Cannula 4 05/12/23 11:30 05/12/23 11:48 Nasal Cannula 4 05/12/23 11:00 Nasal Cannula 4 05/12/23 10:30 Nasal Cannula 4 05/12/23 10:00 Nasal Cannula 4 05/12/23 09:30 Nasal Cannula 4 05/12/23 09:24 Nasal Cannula 4 05/12/23 09:37 Nasal Cannula 2 Intake and Output 05/12/23 05/12/23 05/13/23 15:59 23:59 07:59 Intake Total 2500 / 2770 270 / 2770 Output Total 0 / 900 0 / 900 1800 / 1800 Balance 2500 / 1870 270 / 1870 -1800 / -1800 Intake: Intake, Oral Amount 120 / 120 Intake, Total IV Amount 2500 / 2650 150 / 2650 Levofloxacin/D5w 750 mg/150 ml 150 / 150 750 mg In 150 ml @ 100 mls/hr IV Q48H [facility] Rx#:[id number] Output: Output, Urine Amount 0 / 0 0 / 0 900 / 900 Output, Urine Amount (Catheter) 900 / 900 Suprapubic 900 / 900 Other: Number of Voids 0 Number of Unmeasured Voids 0 0 0 Weight 62.596 kg 64.013 kg Patient Weight 05/13/23 23:59 Weight 64.013 kg Laboratory Results - last 24 hr 05/12/23 09:10: WBC 10.4, RBC 3.96 L, Hgb 11.9 L, Hct 34.7 L, MCV 87.5, MCH 30.0, MCHC 34.2, RDW 14.6, Plt Count 231, MPV 7.9, Neut % (Auto) 76.1, Lymph % (Auto) 19.2, [place] % (Auto) 4.0, Eos % (Auto) 0.4, Baso % (Auto) 0.3, Neut # (Auto) 7.9 H, Lymph # (Auto) 2.0, [place] # (Auto) 0.4, Eos # (Auto) 0.1, Baso # (Auto) 0.0, PT 12.0, INR 1.12 H, Sodium 149 H, Potassium 3.3 L, Chloride 112 H, Carbon Dioxide 25, Anion Gap 16.0 H, BUN 26 H, Creatinine 1.10, Estimated Creat Clear 48, Estimated GFR
[2023-05-13 07:04] LABS: Basophils % 0.2 % (0.1-2.0); Eosinophils # 0.1 K/mm3 (0.0-0.4); Eosinophils % 0.7 % (0.1-12.0); Hematocrit 31.4 % (42.0-52.0); Lymphocytes # 1.6 K/mm3 (0.7-4.5); Lymphocytes % 12.8 % (10-50); Mean Corpuscular Volume 88.1 fl (80-94); Mean Platelet Volume 8.1 fl (7.4-10.4); Monocytes # 0.3 K/mm3 (0.1-1.0); Monocytes % 2.2 % (1.7-9.3); Neutrophils # 10.6 K/mm3 (1.8-7.8); Platelet Count 247 K/mm3 (142-424); Red Blood Count 3.57 M/mm3 (4.60-6.20); Red Cell Distribution Width 14.5 % (11.5-17.5); White Blood Count 12.6 K/mm3 (4.8-10.8)
[2023-05-13 07:04] LABS: POC Glucose,Bedside 128 (70-110)
[2023-05-13 07:06] LABS: Hemoglobin 10.7 g/dL (14.1-18.0)
[2023-05-13 07:14] LABS: Alanine Aminotransferase 18 U/L (12-78); Albumin Level 3.5 g/dl (3.5-5.0); Albumin/Globulin Ratio 1.1 (1.1-1.8); Alkaline Phosphatase 81 U/L (38-126); Anion Gap 15.7 mEq/L (5-15); Aspartate Amino Transferase 23 U/L (17-59); Bilirubin,Total 0.5 mg/dl (0.2-1.3); Blood Urea Nitrogen 23 mg/dl (9-20); Calcium 9.4 mg/dl (8.4-10.2); Carbon Dioxide 25 mmol/L (22.0-30.0); Chloride 112 mmol/L (98-107); Creatinine Clearance Estimated 52 mL/min (50-200); Estimated Glomerular Filt Rate 81 ml/min (>60); GFR (African American) 98 ML/MIN (>60); Globulin 3.2 g/dL (1.3-3.2); Glucose 133 mg/dl (74-100); Magnesium 1.5 mg/dl (1.6-2.3); Total Protein,Serum 6.7 g/dl (6.3-8.2)
[2023-05-13 08:29] LABS: Potassium 2.7 mmoL/L (3.5-5.1); Sodium 150 mmol/L (136-145)
--- NOTE | 2023-05-13 08:46 | PC.NURSE ---
COURTESY NOTE: morning round completed on pt. no new pt requests at this time. Christina AGUILAR
--- NOTE | 2023-05-13 09:33 | HMH.PTEV ---
Physical Therapy Evaluation Rehab PT IP Evaluation Start: 05/12/23 17:02 Freq: ONCE Status: Active Protocol: Document 05/13/23 09:27 KAM (Rec: 05/13/23 09:33 PHORАНДРЕЙ [id number]) Subjective/History History History 83 yowm adm to [facility] with PNA/ Sepsis. He has PMH of Alzheimer's dementia, DM, HLD, RA, epilepsy. He is non- verbal with regards to communication. he is a SNF resident and requires assist with all ADLs, no information about mobility prior to adm. Subjective Subjective Pt has no c/o this am. Follows ~ 50% of commands during mobility assessment. New diagnosis of cancer in past 12 No months? Rehab PT IP Eval Objective Appearance Patient Behavior Confused Difficulty following instructions moderate Speech Pattern No Speech Ambulation Patient Able to Ambulate No Balance Ability to Arise Able, uses arms to help Sitting Balance Leans or slides in chair Standing Balance Unsteady Dynamic Sitting Balance Ability Fair Dynamic Standing Balance Ability Poor Transfers Bed Transfer Ability Moderate x 1 (50% assist) Chair Transfer Ability Maximum x 2 (75% assist) Sit to Stand Bed Transfer Ability Moderate x 2 (50% assist) Sit to Stand Chair Transfer Ability Moderate x 2 (50% assist) Rehab PT IP prob,goals,plan Problems Date of Evaluation: 05/13/23 PT IP Problems Bed Mobility,Transfers Rehab Potential Rehab Potential Fair Plan PT Intervention Plan Bed Mobility,Transfers, Therapeutic Exercise PT Plan Frequency Daily Duration LOS Discharge Goals Bed Transfer Ability Minimal x 2 (25% assist) Sit to Stand Chair Transfer Ability Moderate x 1 (50% assist) Discharge Plan PT Discharge Plan Pt is currently most appropriate to return to SNF with therapy services once medically stable for d/c. Skilled intervention is necessary to reduce the risk of falls, injury, wounds, and debility. Eval Complexity Eval Charge Codes 43302 - High Complexity PHYSICIAN CERTIFICATION: I certify the specified therapy services for Jamie Fonseca are required, authorized, and reviewed
--- NOTE | 2023-05-13 09:36 | HMH.PTWOUND ---
Rehab Inpt Wound Evaluation Rehab IP Wound Evaluation Start: 05/12/23 17:02 Freq: ONCE Status: Active Protocol: Document 05/13/23 09:33 KAM (Rec: 05/13/23 09:36 PHOTOSHIA [id number]) Rehab PT Wound Assessment Subjective Subjective 83 yowm adm to [facility] with PNA/ Sepsis. He has PMH of Alzheimer's dementia, DM, HLD, RA, epilepsy. He is non- verbal with regards to communication. he is a SNF resident and requires assist with all ADLs, no information about mobility prior to adm. Pt presents with R sacral wound upon adm. Wound Right Sacrum Wound Type Pressure Ulcer Is This a Chronic Wound Yes Wound Staging Stage II Query Text:Stage I - Unbroken, red skin, no blanching. Stage II - Skin broken, superficial skin loss involving epidermis alone or also dermis. Partial loss of skin layers. Stage III - Pressure area involves epidermis, dermis and subcutaneous tissue, full thickness skin loss. Stage IV - Pressure area involves epidermis, subcutaneous tissue, bone and other supportive tissue. Full thickness skin loss with extensive destruction of underlying tissue and structures. Wound Length (cm) 0.2 Wound Width (cm) 0.3 Wound Depth (cm) 0.1 Wound Bed Appearance [place] Wound Margins Description Indistinct Surrounding Tissue Appearance Purple Wound Drainage Description Sanguineous Drainage Amount Scant Primary Dressing Composite Wound Debridement Method Mechanical Wound Debridement Amount of Tissue None Removed Dressing Change Patient Tolerance Tolerated Well Plan/Recommendation Comment Current dressing in place is appropriate. Continues pressure relief per protocol via nsg staff. Eval Complexity Eval Charge Codes 99310 - High Complexity PHYSICIAN CERTIFICATION: I certify the specified therapy services for Jamie Fonseca are required, authorized, and reviewed every 30 days.
--- NOTE | 2023-05-13 10:32 | HMH.OTEV ---
OT Inpatient Evaluation Rehab OT IP Evaluation Start: 05/12/23 17:02 Freq: ONCE Status: Active Protocol: Document 05/13/23 09:42 REBECAEDEN (Rec: 05/13/23 10:32 GODWINASPEN [id number]) Rehab OT IP Assessment Subjective History Pleasantly demented 83-year- old male who [facility] his [facility] due to increased work of breathing and concern for possible pneumonia. Patient was diagnosed with pneumonia a week ago and started on azithromycin but did not show any improvement. His symptoms have persisted with new onset hypoxia over the past 24 hours. Unable to obtain any history from patient. History obtained from chart and review of ER documentation. Requiring 4 L of oxygen initially. Chest imaging concerning for pneumonia. UA obtained concerning for UTI. Given weakness, new oxygen requirement, ER consulted medicine for admission. Patient is alert and awake but does not respond to verbal stimuli. Patient is a [place] state and is a resident at a jail. Unable to verbalize. Difficulty with followign commands. Unknown of baseline at this time. Poor historian. Subjective Instructed Patient on proper hand and foot placement to complete supine->sit @ EOB requiring Mod A. Patient demonstrated good static sitting balance with SBA. Instructed Patient on SPT from EOB->recliner requiring Max A . Patient had difficulty standing and following commands. Objective Patient Orientation Person,Place,Name Right Upper Extremity Gross ROM WFL Left Upper Extremity Gross ROM WFL Bed Mobility bed mobility -
[2023-05-13 10:53] LABS: POC Glucose,Bedside 159 (70-110)
[2023-05-13 16:36] LABS: POC Glucose,Bedside 189 (70-110)
[2023-05-13 19:09] LABS: Anion Gap 15.5 mEq/L (5-15); Blood Urea Nitrogen 20 mg/dl (9-20); Calcium 8.9 mg/dl (8.4-10.2); Carbon Dioxide 19 mmol/L (22.0-30.0); Chloride 112 mmol/L (98-107); Creatinine Clearance Estimated 52 mL/min (50-200); Estimated Glomerular Filt Rate 93 ml/min (>60); GFR (African American) 112 ML/MIN (>60); Glucose 180 mg/dl (74-100); Magnesium 1.7 mg/dl (1.6-2.3); Potassium 3.5 mmoL/L (3.5-5.1); Sodium 143 mmol/L (136-145)
[2023-05-13 19:41] LABS: POC Glucose,Bedside 217 (70-110)
[2023-05-14] VITALS (10 sets, daily range): BP systolic 100–146; BP diastolic 50–63; PULSE 42–100; RESP 17–20; TEMP 36.4–36.8; O2SAT 92–98; BMI 17.8
[2023-05-14 05:47] LABS: POC Glucose,Bedside 105 (70-110)
[2023-05-14 08:36] LABS: Basophils % 0.2 % (0.1-2.0); Eosinophils # 0.2 K/mm3 (0.0-0.4); Eosinophils % 1.4 % (0.1-12.0); Hematocrit 30.4 % (42.0-52.0); Hemoglobin 10.2 g/dL (14.1-18.0); Lymphocytes # 0.8 K/mm3 (0.7-4.5); Lymphocytes % 6.2 % (10-50); Mean Corpuscular HGB Conc 33.4 g/dL (31.8-35.4); Mean Corpuscular Hemoglobin 29.6 pg (27.0-31.2); Mean Corpuscular Volume 88.4 fl (80-94); Mean Platelet Volume 8.4 fl (7.4-10.4); Monocytes # 0.4 K/mm3 (0.1-1.0); Monocytes % 2.9 % (1.7-9.3); Neutrophils # 11.1 K/mm3 (1.8-7.8); Neutrophils % 89.2 % (37.0-80.0); Platelet Count 266 K/mm3 (142-424); Red Blood Count 3.44 M/mm3 (4.60-6.20); Red Cell Distribution Width 14.3 % (11.5-17.5); White Blood Count 12.4 K/mm3 (4.8-10.8)
[2023-05-14 08:46] LABS: Alanine Aminotransferase 21 U/L (12-78); Albumin Level 3.2 g/dl (3.5-5.0); Alkaline Phosphatase 78 U/L (38-126); Anion Gap 12.8 mEq/L (5-15); Aspartate Amino Transferase 24 U/L (17-59); Bilirubin,Total 0.2 mg/dl (0.2-1.3); Blood Urea Nitrogen 16 mg/dl (9-20); Calcium 8.9 mg/dl (8.4-10.2); Carbon Dioxide 24 mmol/L (22.0-30.0); Chloride 110 mmol/L (98-107); Creatinine Clearance Estimated 51 mL/min (50-200); Estimated Glomerular Filt Rate 81 ml/min (>60); GFR (African American) 98 ML/MIN (>60); Globulin 3.1 g/dL (1.3-3.2); Glucose 146 mg/dl (74-100); Magnesium 1.5 mg/dl (1.6-2.3); Sodium 144 mmol/L (136-145); Total Protein,Serum 6.3 g/dl (6.3-8.2)
[2023-05-14 08:50] LABS: MANUAL DIFFERENTIAL MANUAL DIFFERENTIAL (MANUAL DIFF)
[2023-05-14 09:03] LABS: Potassium 2.8 mmoL/L (3.5-5.1)
[2023-05-14 09:07] LABS: Lymphocytes % 3 % (10-50); Monocytes % 2 % (2-9); Neutrophils % 95 % (42-76); Platelet Estimate Normal; RBC Morphology Normal; Total Cells Counted 100
--- NOTE | 2023-05-14 09:38 | EXP.DC.SUM ---
General Admission date:: 05/12/23 Discharge date: 05/14/23 HPI HPI HPI: Pleasantly demented 83-year-old male who presents from his fdc due to increased work of breathing and concern for possible pneumonia. Patient was diagnosed with pneumonia a week ago and started on azithromycin but did not show any improvement. His symptoms have persisted with new onset hypoxia over the past 24 hours. Unable to obtain any history from patient. History obtained from chart and review of ER documentation. Requiring 4 L of oxygen initially. Chest imaging concerning for pneumonia. UA obtained concerning for UTI. Given weakness, new oxygen requirement, ER consulted medicine for admission. Patient is alert and awake but does not respond to verbal stimuli. Hospital Course Hospital Course Hospital Course: 83-year-old male with history of dementia, wheelchair dependent, long-term fdc resident who presents to the ER because of increased oxygen requirement and concern for pneumonia. Work-up in the ER concerning for pneumonia on chest imaging. Urine concerning for UTI. Since discussion with ER physician, request admission for antibiotics and further management of his pneumonia. Medicine agreed to admit for IV antibiotics and further work-up. Also found to have hypernatremia. Patient is nonverbal. Showed clinical improvement during admission. Requiring assistance to eat with one-on-one feedings. Oxygen requirement back to baseline. Stable for discharge back to fdc. Problems addressed as follows: Pneumonia Sepsis -Presented meeting criteria for sepsis. Started on cefepime. Patient was transitioned to levofloxacin, with improvement in renal function, will complete 7 days total of levofloxacin 750 mg daily. Able to decrease oxygen requirement to 2-3 L. Patient's vital stable and at baseline oxygen requirement. Meeting criteria for discharge back to nursing facility. Complete antibiotics as prescribed. Hypernatremia Hypokalemia Sodium elevated on admission, administered IV D5 half-normal with improvement in sodium. Potassium low during admission necessitating replacement. Recommend repeat CMP in 1 week to evaluate potassium and sodium. Would recommend aggressive attention to pushing free water to help address patient's elevated sodium. UTI: Urinalysis grossly abnormal with nitrate and leuk esterase. Antibiotics as above will cover. Urine culture pending at time of discharge. We will follow culture. Severe protein calorie malnutrition: Nutrition consulted, assisting with diet modification and supplementation. Recommend nutrition consult at nursing facility. History of diabetes: A1c is 5. Patient on sliding scale insulin during admission. Fingersticks ACHS. Resume metformin at discharge. Glucoses have ranged from 120-250 during admission. History of hypothyroidism, TSH within normal range. Continue levothyroxine 25 mcg daily History of seizure disorder, continue Keppra 750 mg twice daily Continue Paxil daily for mood Continue Risperdal twice daily 1 mg and Zoloft 50 mg daily for mood Stable for discharge back to nursing facility for continued care and completion of antibiotic course. Spent 30 minutes in discharge care, medication adjustment, documentation, chart review, and direct care with patient. Exam Data for Last 24 hours Vital signs and Labs for Last 24 Hours: Temp Pulse Resp BP Pulse Ox O2 Del Method O2 Flow Rate 98.1 F 100 H 18 146/59 H 97 Nasal Cannula 2 05/14/23 07:33 05/14/23 07:33 05/14/23 07:33 05/14/23 07:33 05/14/23 08:00 05/14/23 09:00 05/14/23 09:00 Laboratory Results - last 24 hr 05/13/23 10:46: POC Glucose 159 H 05/13/23 16:29: POC Glucose 189 H 05/13/23 18:50: Sodium 143, Potassium 3.5 D, Chloride 112 H, Carbon Dioxide 19 L, Anion Gap 15.5 H, BUN 20, Creatinine 0.80, Estimated Creat Clear 52, Estimated GFR 93, Est GFR ( Amer) 112, Glucose 180 H D, Calcium 8.9, Magn
[2023-05-14 11:14] LABS: POC Glucose,Bedside 238 (70-110)
[2023-05-14 15:07] LABS: Chloride 119 mmol/L (98-107)
[2023-05-14 15:08] LABS: Potassium 4.3 mmoL/L (3.5-5.1); Sodium 147 mmol/L (136-145)
[2023-05-14 15:10] LABS: Blood Urea Nitrogen 19 mg/dl (9-20); Creatinine Clearance Estimated 51 mL/min (50-200); Estimated Glomerular Filt Rate 108 ml/min (>60); GFR (African American) 131 ML/MIN (>60)
[2023-05-14 15:11] LABS: Anion Gap 10.3 mEq/L (5-15); Calcium 8.7 mg/dl (8.4-10.2); Carbon Dioxide 22 mmol/L (22.0-30.0)
[2023-05-14 15:31] LABS: Glucose 64 mg/dl (74-100)
--- NOTE | 2023-05-14 16:26 | PC.NURSE ---
called report to verna at [facility]. notified ems of transport, ems stated it may be awhile.
[2023-05-14 16:45] LABS: POC Glucose,Bedside 70 (70-110)
== END 2023-05-14 18:10 | DRG 871 ==
LOC: ER 10:49 → 2ND 11:23
PROVIDERS: Admitting Provider Internal Medicine Adolescent Medicine; Emergency Provider Emergency Medicine; PCP Emergency Medicine; Visit Provider Internal Medicine Adolescent Medicine
DX: A41.9 Sepsis, unspecified organism (principal); E43 Unspecified severe protein-calorie malnutrition; J18.9 Pneumonia, unspecified organism; J96.01 Acute respiratory failure with hypoxia; Z68.1 Body mass index [BMI] 19.9 or less, adult; F02.84 Dementia in other diseases classified elsewhere, unspecified severity, with anxiety; N39.0 Urinary tract infection, site not specified; Z79.4 Long term (current) use of insulin; F20.9 Schizophrenia, unspecified; E11.42 Type 2 diabetes mellitus with diabetic polyneuropathy; R65.20 Severe sepsis without septic shock; E87.6 Hypokalemia; E03.9 Hypothyroidism, unspecified; G40.909 Epilepsy, unspecified, not intractable, without status epilepticus; Z99.3 Dependence on wheelchair; G30.9 Alzheimer's disease, unspecified; F02.80 Dementia in other diseases classified elsewhere, unspecified severity, without behavioral disturbance, psychotic disturbance, mood disturbance, and anxiety; Z79.84 Long term (current) use of oral hypoglycemic drugs; M19.90 Unspecified osteoarthritis, unspecified site; E78.5 Hyperlipidemia, unspecified; Z99.81 Dependence on supplemental oxygen
CPT/HCPCS: 36415; 71045; 80048; 80053; 81001; 82803; 82962; 83036; 83605; 83735; 84443; 84484; 85007; 85025; 85610; 87040; 87086; 87636; 93005; 94640; 94760; 97163; 97165; 97530; 99291; J0131; J0456; J1956; J3475

== ENCOUNTER 2023-06-02 12:46 | Emergency (ER) | payer MEDICARE, MEDICAID, SELFPAY ==
[2023-06-02 12:37] VITALS: BP 72/40; PULSE 122; RESP 10; TEMP 37.5; O2SAT 78; BMI 19.1
--- NOTE | 2023-06-02 12:46 | PC.NURSE ---
1236- pt arrived via ems 1240- MD at the bedside, pt noted to be hypoxic and unresponsive. md requests set up for intubation. 1242-verbal orders for 30mg of etomidate and 150mg of succ given by MD and administered for sedation. 1243- pt intubated with 7.5 tube, 23 at the gums. color changed noted with auscultated breath sounds. 1250- md requests propofol for sedation. 1253- pt lost pulse with resp staff at the bedside. cpr initiated 1255- no pulse at this time. 1mg of epi given. 1257- no pulse at this time. cpr started 1258- 1mg of epi goven at this time 1259- no pulse at this time. cpr started 1301-pulse check at this time. shoacked at 120j 1302- efforts terminated at this time.
--- NOTE | 2023-06-02 12:48 | XR_ITS ---
FINAL REPORT CLINICAL HISTORY: post intubation COMPARISON: 05/12/2023 FINDINGS: SINGLE-VIEW CHEST The heart size is normal. The mediastinum is normal. Endotracheal tube tip is in the proximal right mainstem bronchus and needs to be retracted approximately 3 cm. There are chronic interstitial opacities in both lungs, favor chronic. Findings are stable from previous. There is no pneumothorax. IMPRESSION: Endotracheal tube needs to be retracted approximately 3 cm. Eric Garay RN was notified of findings on 06/02/2023 at 1:37 p.m. Reviewed, Interpreted and Dictated by Rosalio Bustamante MD Transcribed by Rashmi Stauffer Authenticated and [facility]
--- NOTE | 2023-06-02 12:49 | HMH.EDGENADL ---
Discharge Plan Disposition Patient Disposition: Date/Time: 06/02/23 13:02 Clinical Impressions Clinical Impression: Respiratory arrest, Encephalopathy acute, Sepsis Discharge ED Provider: Ester Olivera General Adult HPI General Chief complaint: Shortness of Breath/Dyspnea Stated complaint: Resp distress Time Seen by Provider: 06/02/23 12:47 History of Present Illness HPI narrative: Patient is a demented 83-year-old who is a castaneda of the [facility] brought in for severe respiratory distress and altered mental status. He is full code according to EMS. He was found today essentially unresponsive eyes open mouth gaping wide without any response to stimulus environment. Apparently he was hospitalized recently this month with a diagnosis of pneumonia and urinary tract infection they were trying to get the patient onto hospice but all the paperwork had not gone through so he still full code and order the status stated above. No other family or open claims representative is with him. Related Data Home Medications Medication Instructions Recorded Confirmed gemfibrozil 600 mg tablet (Lopid) 600 mg PO BID Cholesterol 12/08/21 05/12/23 guaifenesin 100 mg/5 mL oral 200 mg PO DAILY Cough 12/08/21 05/12/23 liquid (Robafen) levothyroxine 25 mcg tablet 25 mcg PO DAILY thyroid 12/08/21 05/12/23 (Synthroid) loratadine 10 mg tablet (Claritin) 10 mg PO DAILY allergies 12/08/21 05/12/23 metformin 500 mg tablet 500 mg PO BID Diabetes 12/08/21 05/12/23 omeprazole 40 mg capsule,delayed 40 mg PO DAILY Acid Reflux 12/08/21 05/12/23 release calcium carbonate 600 mg-vitamin 1 tab PO BID Supplement 10/05/22 05/12/23 D3 5 mcg (200 unit) tablet donepezil 10 mg tablet 10 mg PO HS memory 10/05/22 05/12/23 folic acid 1 mg tablet 1 mg PO DAILY Supplement 10/05/22 05/12/23 acetaminophen 500 mg tablet 500 mg PO BID Pain 05/12/23 05/12/23 acetaminophen 500 mg tablet 500 mg PO Q4HP PRN Pain 05/12/23 05/12/23 aspirin 81 mg chewable tablet 81 mg PO DAILY heart health 05/12/23 05/12/23 benzonatate 100 mg capsule 100 mg PO Q8HP PRN Cough 05/12/23 05/12/23 cyanocobalamin (vitamin B-12) 1,000 mcg PO DAILY Supplement 05/12/23 05/12/23 1,000 mcg tablet lactulose 10 gram/15 mL oral 30 ml PO DAILY PRN Constipation 05/12/23 05/12/23 solution levetiracetam 750 mg tablet 750 mg PO BID seizures 05/12/23 05/12/23 ondansetron HCl 4 mg tablet 4 mg PO NEEDED PRN Nausea 05/12/23 05/12/23 risperidone 1 mg tablet 1 mg PO BID mood 05/12/23 05/12/23 sertraline 50 mg tablet 50 mg PO DAILY mood 05/12/23 05/12/23 tolterodine 2 mg tablet 2 mg PO BID bladder 05/12/23 05/12/23 Previous Rx's Medication Instructions Recorded levofloxacin 750 mg tablet 750 mg PO 1600 4 days #4 tabs 05/14/23 Allergies Allergy/AdvReac Type Severity Reaction Status Date / Time atenolol Allergy Intermediate Verified 05/12/23 09:41 meperidine [From Demerol] Allergy Intermediate Verified 05/12/23 09:41 ziprasidone [From Geodon] Allergy Intermediate Verified 05/12/23 09:41 PFS PFS Disclaimer: The information contained in this section may have been updated after the patient was seen, as this information can be updated by other users. Medical History Allergic rhinitis Alzheimer's dementia Depression Diabetes mellitus Dysphagia Epilepsy GERD without esophagitis Hyperlipidemia Inguinal hernia Osteoarthritis Rheumatoid arthritis Vitamin B deficiency Vitamin D deficiency Family History No significant family history Mental illness in member of household Social History Smoking Status: Never smoker alcohol intake: former current occupational status: disabled Travel in the last 8 weeks: None ROS Obtained: Yes All systems reviewed & no additional complaints except as documented Physical
[2023-06-02 12:58] LABS: Basophils # 0.1 K/mm3 (0-0.2); Basophils % 0.3 % (0.1-2.0); Eosinophils # 0.1 K/mm3 (0.0-0.4); Eosinophils % 0.5 % (0.1-12.0); Hematocrit 45.2 % (42.0-52.0); Hemoglobin 14.4 g/dL (14.1-18.0); Lymphocytes # 1.2 K/mm3 (0.7-4.5); Lymphocytes % 6.6 % (10-50); Mean Corpuscular HGB Conc 31.8 g/dL (31.8-35.4); Mean Corpuscular Hemoglobin 28.7 pg (27.0-31.2); Mean Corpuscular Volume 90.2 fl (80-94); Mean Platelet Volume 8.6 fl (7.4-10.4); Monocytes # 0.8 K/mm3 (0.1-1.0); Monocytes % 4.1 % (1.7-9.3); Neutrophils # 16.1 K/mm3 (1.8-7.8); Neutrophils % 88.5 % (37.0-80.0); Platelet Count 398 K/mm3 (142-424); Red Blood Count 5.01 M/mm3 (4.60-6.20); Red Cell Distribution Width 15.7 % (11.5-17.5); White Blood Count 18.2 K/mm3 (4.8-10.8)
[2023-06-02 13:04] LABS: MANUAL DIFFERENTIAL MANUAL DIFFERENTIAL (MANUAL DIFF)
[2023-06-02 13:26] LABS: Lymphocytes % 9 % (10-50); Monocytes % 8 % (2-9); Neutrophils % 75 % (42-76); Total Cells Counted 100
[2023-06-02 13:27] LABS: Alanine Aminotransferase 39 U/L (12-78); Albumin Level 3.5 g/dl (3.5-5.0); Albumin/Globulin Ratio 0.9 (1.1-1.8); Alkaline Phosphatase 104 U/L (38-126); Anion Gap 19.5 mEq/L (5-15); Aspartate Amino Transferase 100 U/L (17-59); Bilirubin,Total 0.8 mg/dl (0.2-1.3); Blood Urea Nitrogen 49 mg/dl (9-20); Carbon Dioxide 21 mmol/L (22.0-30.0); Chloride 112 mmol/L (98-107); Creatinine Clearance Estimated 26 mL/min (50-200); Estimated Glomerular Filt Rate 32 ml/min (>60); GFR (African American) 39 ML/MIN (>60); Glucose 166 mg/dl (74-100); Platelet Estimate Normal; Potassium 4.5 mmoL/L (3.5-5.1); RBC Morphology Normal; Sodium 148 mmol/L (136-145); Total Protein,Serum 7.5 g/dl (6.3-8.2)
[2023-06-02 13:38] LABS: Troponin I 0.08 ng/ml (0.00-0.034)
--- NOTE | 2023-06-02 13:46 | PC.NURSE ---
Spoke with Jw Castellano from [employer] Pt ruled out for donation
[2023-06-02 14:27] VITALS: BP 0/0; PULSE 0; RESP 0; TEMP -17.7; TEMP 0; O2SAT 0
--- NOTE | 2023-06-02 15:19 | EXP.DEATH.NO ---
Pronouncement Note Date and Time of Date of : 06/02/23 Time of : 13:02 PCOD Preliminary cause of : Respiratory arrest Summary Additional details: #Patient arrived in severe respiratory distress requiring intubation shortly thereafter had cardiac arrest and was unable to be resuscitated. Additional Data Confirmation of : no pulse, no respirations, no heart sounds, pupils fixed and dilated and other (No cardiac activity on bedside ultrasound) Family: not available (Patient is a cast[place] of the state no family at the bedside are able to be contacted) Attending/PCP notified?: No Autopsy requested?: No forensic computer examiner notified?: No Organ bank notified?: No Advance directives: Yes (Patient was a castaneda of the [facility] and was full code upon arrival)
== END 2023-06-02 14:28 | disposition expired ==
PROVIDERS: Emergency Provider Student in an Organized Health Care Education/Training Program
DX: A41.9 Sepsis, unspecified organism (principal); I46.9 Cardiac arrest, cause unspecified; J96.01 Acute respiratory failure with hypoxia; G93.40 Encephalopathy, unspecified
CPT/HCPCS: 31500; 71045; 80053; 84484; 85007; 85025; 92950; 96365; 96366; 96367; 96375; 99291